=== PATIENT | female | born 1960 | race Hispanic/Latino ===

== ENCOUNTER 2016-12-20 09:01 | Outpatient (CLI) | payer BC ==
--- OUTSIDE RECORDS SUMMARY | 2016-12-20 09:39 | XMS | Clinical Summary ---
:1960 Author Organization [facility] Address [address] [place] [address] Phone Care Team Providers Name Role Phone , Primary Care Provider Unavailable Allergies Not on File Current Medications Not on file Active Problems Not on file Social History Tobacco Use Types Packs/Day Years Used Date Never Assessed Sex Assigned at Date Recorded Not on file Last Filed Vital Signs Not on file Plan of Treatment Not on file Results Not on filefrom Last 3 Months
--- NOTE | 2016-12-20 11:32 | MMO ---
BILATERAL SCREENING MAMMOGRAM: Date: 12/20/16 COMPARISON: 08/27/14 and 08/03/15. HISTORY: Screening mammography. FINDINGS: This patient's mammogram was interpreted with the assistance of computer-aided detection. The breast parenchyma is heterogeneously dense. There is no dominant mass or architectural distortio n. No concerning calcifications are noted. IMPRESSION: BIRADS 1: Negative Annual screening mammography recommended. POS: KELLI
== END 2016-12-20 09:02 | disposition home or self-care (01) ==
LOC: SCSMAMMO 09:01
PROVIDERS: ATTEND Family Medicine
DX: Z12.31 Encounter for screening mammogram for malignant neoplasm of breast (principal)
CPT/HCPCS: 77067; G0202

== ENCOUNTER 2018-01-18 09:50 | Outpatient (CLI) | payer BC ==
--- NOTE | 2018-01-18 16:37 | MRI ---
MRI BRAIN WITH AND WITHOUT CONTRAST: Date: 01/18/18 HISTORY: Headache. Symptoms x3 months. COMPARISON: None. TECHNIQUE: Brain MRI is performed with and without intravenous Gadolinium administration. Multisequential, multi planar imaging is performed. FINDINGS: No evidence of hemorrhage on the axial gradient echo sequence. Hypointensity noted left frontal regio n, near the vertex, is presumed to be artifactual. No parenchymal mass, mass effect, or midline shift. Brain volume, age-appropriate. Cortical collazo-whit e matter differentiation preserved. Ventricles and sulci are patent and symmetric. Central arterial flow-voids are maintained. Absent restricted diffusion. Adequate aeration of the sinuses and mastoid air cells. Calvarium has a normal T1 marrow signal intensity. Midline brain parenchymal structures are unremarka ble. No pathologic enhancement of the brain parenchyma. IMPRESSION: 1. Absent restricted diffusion. No acute infarct. 2. No pathologic enhancement of the brain parenchyma. 3. Artifact involving the left frontal region, which is presumed to be due to something external to the patient. Correlate clinically. POS: KELLI
== END 2018-01-18 09:51 | disposition home or self-care (01) ==
LOC: SCSMRI 09:50
PROVIDERS: ATTEND Family Medicine
DX: H53.8 Other visual disturbances (principal); R51 Headache
CPT/HCPCS: 70553

== ENCOUNTER 2018-04-05 12:34 | Outpatient (CLI) | payer BC ==
--- NOTE | 2018-04-05 14:36 | MMO ---
BILATERAL SCREENING MAMMOGRAM: Date: 04/05/18 INDICATION: Annual exam. COMPARISON: Prior exam dated 12/20/16 and 08/27/14. FINDINGS: Interpretation of this exam was assisted with computer-aided detection. The breast parenchyma is heterogeneously dense. No new suspicious mass, cluster of microcalcifications, or area of architectural distortion is eviden t. IMPRESSION: BIRADS 1: Negative Recommend routine annual mammographic screening. POS: KELLI
== END 2018-04-05 12:35 | disposition home or self-care (01) ==
LOC: SCSMAMMO 12:34
PROVIDERS: ATTEND Family Medicine
DX: Z12.31 Encounter for screening mammogram for malignant neoplasm of breast (principal)
CPT/HCPCS: 77067

== ENCOUNTER 2020-08-06 08:53 | Outpatient (CLI) | payer BC | END 2020-08-06 08:54 | disposition home or self-care (01) | LOC: BICRAD 08:53 | PROVIDERS: ATTEND Physician Assistant | DX: M53.3 Sacrococcygeal disorders, not elsewhere classified (principal) | CPT/HCPCS: 72220 ==

== ENCOUNTER 2024-09-16 10:27 | Outpatient (CLI) | payer BC | END 2024-09-16 10:28 | disposition home or self-care (01) | LOC: BICMAMMO 10:27 | PROVIDERS: ATTEND Family Medicine | DX: Z12.31 Encounter for screening mammogram for malignant neoplasm of breast (principal); M81.0 Age-related osteoporosis without current pathological fracture; Z85.118 Personal history of other malignant neoplasm of bronchus and lung | CPT/HCPCS: 77063; 77067; 77080 ==